=== PATIENT | female | born 1950 | race Caucasian/White ===

== ENCOUNTER → 2023-06-01 12:43 | Outpatient (REF) | payer MEDICARE, BC, SELFPAY | LOC: HWRAD 12:43 | PROVIDERS: ATTENDING PHYSICIAN Physician Assistant Medical; FAMILY PHYSICIAN Family Medicine Adult Medicine | DX: M85.80 Other specified disorders of bone density and structure, unspecified site (principal); M85.89 Other specified disorders of bone density and structure, multiple sites | CPT/HCPCS: 77080 ==

== ENCOUNTER → 2023-08-14 13:43 | Outpatient (REF) | payer MEDICARE, BC, SELFPAY | LOC: HWRCS 13:43 | PROVIDERS: ATTENDING PHYSICIAN Internal Medicine Cardiovascular Disease; FAMILY PHYSICIAN Family Medicine Adult Medicine | DX: R06.02 Shortness of breath (principal) | CPT/HCPCS: 93306 ==

== ENCOUNTER → 2024-04-10 14:31 | Outpatient (REF) | payer MEDICARE, BC, SELFPAY | LOC: HWWDC 14:31 | PROVIDERS: ATTENDING PHYSICIAN Physician Assistant Medical; FAMILY PHYSICIAN Family Medicine Adult Medicine | DX: Z12.31 Encounter for screening mammogram for malignant neoplasm of breast (principal) | CPT/HCPCS: 77063; 77067 ==